=== PATIENT | female | born 1955 ===

== ENCOUNTER 2022-09-10 20:37 | Inpatient (IN) | payer MEDICARE, OTHER ==
[~2022-09-10] VITALS: Ht 157.5 cm; Wt 85.7 kg
--- NOTE | 2022-09-10 20:58 | NUR ---
Dr Zavaleta at bedside MSE in progress
--- NOTE | 2022-09-10 21:00 | NUR ---
PATIENT'S SON AT BEDSIDE
[2022-09-10] MEDS ORDERED: ONDANSETRON 4 MG/2 ML VIAL ONE (21:04)
[2022-09-10] MEDS ORDERED: IV NORMAL SALINE 1000 ML BAG IV ONE (21:15)
[2022-09-10] MEDS ORDERED: ONDANSETRON 4 MG/2 ML VIAL IV ONE (21:15)
[2022-09-10 21:19] LABS: HEMATOCRIT 39.1 % (31.2-41.9); MEAN CORPUSCULAR HEMOGLOBIN 33.7 uug (24.7-32.8); MEAN CORPUSCULAR VOLUME 99.1 fL (75.5-95.3); PLATELET COUNT (AUTO) 155 K/uL (179-408)
[2022-09-10 21:32] LABS: CARBON DIOXIDE 26 mmol/L (21-32); CHLORIDE 98 mmol/L (98-107); CREATININE 0.9 mg/dL (0.6-1.3); GLUCOSE 170 mg/dL (74-106); POTASSIUM 3.7 mmol/L (3.5-5.1); UREA NITROGEN, BLOOD 15 mg/dL (7-18)
--- NOTE | 2022-09-10 21:40 | NUR ---
called 3rd floor for bed. Spoke with Sofie GUILLORYcharge coordinator. Will call me back
[2022-09-10 21:41] LABS: ALANINE AMINOTRANSFERASE 68 U/L (14-59); ALKALINE PHOSPHATASE 59 U/L (50-136); ASPARTATE AMINOTRANSFERASE 35 U/L (15-37); BILIRUBIN,DIRECT 0.2 mg/dL (0.0-0.2); BILIRUBIN,TOTAL 1.2 mg/dL (0.2-1.0); TOTAL PROTEIN, SERUM 8.1 g/dL (6.4-8.2)
--- NOTE | 2022-09-10 21:45 | NUR ---
Sofie GUILLORYcredit charge authorizer called back. Patient will be transfered to ROOM 318 TELE
[2022-09-10] MEDS ORDERED: SULFAMETH/TRIMETH 800/160 MG TABLET ONE (22:09)
[2022-09-10] MEDS ORDERED: HYDROMORPHONE 1 MG/1 ML DISP.SYRIN ONE (22:10)
[2022-09-10] MEDS ORDERED: HYDROMORPHONE 1 MG/1 ML DISP.SYRIN IV ONE (22:15)
[2022-09-10] MEDS ORDERED: SULFAMETH/TRIMETH 800/160 MG TABLET PO ONE (22:15)
[2022-09-10] MEDS ORDERED: SIMV10TA98 PO (22:42)
[2022-09-10] MEDS ORDERED: PALB75CA PO (22:42)
--- NOTE | 2022-09-10 22:42 | NUR ---
PATIENT DOES NOT ALL HOME MEDICATIONS AND DOSAGES AT THIS TIME
--- NOTE | 2022-09-10 22:52 | NUR ---
PATIENT HAS BEEN ACCEPTED BY DR RICHARDSON
[2022-09-10] MEDS ORDERED: ACETAMINOPHEN 325 MG TABLET PO PRN (23:00)
[2022-09-10] MEDS ORDERED: MAGNESIUM HYDROXIDE 30 ML LIQUID UDC PO PRN (23:00)
[2022-09-10] MEDS ORDERED: IV NS 1000 ML 1,000 ML IV PRN (23:00)
[2022-09-10] MEDS ORDERED: ONDANSETRON 4 MG/2 ML VIAL IV PRN (23:00)
[2022-09-10] MEDS ORDERED: REMEDY ESSENTIAL ZINC PASTE 113 GM TP PRN (23:00)
[2022-09-10] MEDS ORDERED: HYDROCODONE/APAP 5-325MG TABLET PO PRN (23:00)
[2022-09-11] VITALS (8 sets, daily range): BP systolic 100–121; BP diastolic 53–78
--- NOTE | 2022-09-11 00:38 | NUR ---
report given to Marla GUILLORY
--- NOTE | 2022-09-11 01:05 | NUR ---
Pt. admitted to TELE room 318, under care of Dr. Albright Belongs List completed Marla RN aware of patient's arrival
[2022-09-11 07:12] LABS: HEMATOCRIT 34.3 % (31.2-41.9); MEAN CORPUSCULAR HEMOGLOBIN 34.6 uug (24.7-32.8); MEAN CORPUSCULAR VOLUME 98.1 fL (75.5-95.3); PLATELET COUNT (AUTO) 147 K/uL (179-408)
--- NOTE | 2022-09-11 07:21 | NUR ---
Pt admitted from ed assessment complete. Pt vomited on movenent from stretcher to bed , C/o mild headache. IVF infusing satisfactory Pt voiding without difficulty.
[2022-09-11 07:28] LABS: CREATININE 0.7 mg/dL (0.6-1.3); MAGNESIUM 1.9 mg/dL (1.8-2.4); PHOSPHOROUS 2.8 mg/dL (2.5-4.9); POTASSIUM 3.6 mmol/L (3.5-5.1)
--- NOTE | 2022-09-11 08:00 | NUR ---
Recieved pt resting in bad. Pt is feeling weak with headache. Breakfast offered, but declined due to Kosher diet. Orthostatic BP checked and recorded. SR on monitor.
--- NOTE | 2022-09-11 09:00 | NUR ---
Pt seen by Dr. Baker for cardio consult. will see notes.
--- NOTE | 2022-09-11 12:35 | NUR ---
No acute changes from morning assessment. Will continue telemetry. Remains SR on monitor.
[2022-09-11 13:18] LABS: THYROID STIMULATING HORMONE 0.308 mIU/mL (0.358-3.740)
--- NOTE | 2022-09-11 18:34 | NUR ---
DISCHARGED HOME STABLE ACCOMPANIED BY SON WITH MEDICATION AND FOLLOW-UP INSTRUCTION
== END 2022-09-11 18:35 | disposition home or self-care (01) | DRG 312 ==
LOC: ER 20:40 → TELE3 21:38
PROVIDERS: ADMIT Internal Medicine; ATTEND Internal Medicine
DX: R55 Syncope and collapse (principal); D61.810 Antineoplastic chemotherapy induced pancytopenia; C79.51 Secondary malignant neoplasm of bone; R51.9 Headache, unspecified; Z20.822 Contact with and (suspected) exposure to COVID-19; E05.90 Thyrotoxicosis, unspecified without thyrotoxic crisis or storm; J32.3 Chronic sphenoidal sinusitis; E78.5 Hyperlipidemia, unspecified; R73.9 Hyperglycemia, unspecified; T45.1X5A Adverse effect of antineoplastic and immunosuppressive drugs, initial encounter; Y92.009 Unspecified place in unspecified non-institutional (private) residence as the place of occurrence of the external cause; C50.911 Malignant neoplasm of unspecified site of right female breast; E66.9 Obesity, unspecified; Z68.34 Body mass index [BMI] 34.0-34.9, adult; Z79.899 Other long term (current) drug therapy
CPT/HCPCS: 36415; 70450; 71045; 83735; 84100; 84443; 84484; 85025; 93307; A4663; G0378; J1170; J2405; J7040